=== PATIENT | male | born 1955 | race Hispanic/Latino ===

== ENCOUNTER 2021-01-03 15:49 | Emergency (ER) | payer OTHER ==
[~2021-01-03] VITALS: Ht 182.9 cm; Wt 81.6 kg
[2021-01-03] MEDS ORDERED: IBUPROFEN IB200 MG PO (16:56)
[2021-01-03] MEDS ORDERED: ACETAMINOPHEN-1 EAC4 PO (16:56)
[2021-01-03] MEDS ORDERED: HYDROCODONE/APAP 5MG-325MG TAB PO ONE (17:00)
[2021-01-03] MEDS ORDERED: ONDANSETRON HCL 4 MG ORAL DISINTEGRATING TAB PO ONE (17:00)
[2021-01-03] MEDS ORDERED: IBUPROFEN 200 MG TAB PO ONE (17:00)
[2021-01-03] MEDS ORDERED: IBUPROFEN 600 MG TAB ONE (17:11)
== END 2021-01-03 18:19 | disposition home or self-care (01) ==
LOC: FSED 16:05
DX: S20.211A Contusion of right front wall of thorax, initial encounter (principal); W01.198A Fall on same level from slipping, tripping and stumbling with subsequent striking against other object, initial encounter; Y93.01 Activity, walking, marching and hiking
CPT/HCPCS: 71101; 71250; 99284; Q0162